=== PATIENT | female | born 1990 | race Caucasian/White ===

== ENCOUNTER 2016-11-28 20:38 | Emergency (ER) | payer BC ==
[2016-11-28 21:59] VITALS: BP 110/66
[2016-11-28] MEDS ORDERED: Cyclobenzaprine TAB* 10 MG PO ONE (23:03)
[2016-11-28] MEDS ORDERED: Naproxen TAB* 250 MG PO ONE (23:03)
--- NOTE | 2016-11-29 01:21 | ED ---
Back Pain - HPI Summary HPI Summary: Patient arrives to ED with CC of back pain which started last night. History of sciatic pain and lower back pain during . States onset was sudden, denies trauma. Denies bladder or bowel incontinence. Pain is in lower back bilaterally and is sharp. Pain radiates down the right side of the leg and is sharp like "lightning." Has tried Ibuprofen without relief. She states she lays on the couch most of the day. Awoke today with a 10/10 onset of pain. denies saddle anesthesia. denies tenderness over spine. - History of Current Complaint Chief Complaint: EDBackInjuryPain Stated Complaint: LOWER BACK PAIN Hx Obtained From: Patient Onset/Duration: Sudden Onset Onset/Duration: Started Days Ago Timing: Constant Back Pain Location: Is Discrete @ - bilateral hips at sacroiliac joints. Severity Initially: Moderate Severity Currently: Moderate Pain Intensity: 6 Pain Scale Used: 0-10 Numeric Character: Aching Aggravating Symptom(s): Movement, Bending Alleviating Symptom(s): Rest, Position - laying on side Associated Signs And Symptoms: Positive: Weakness - Risk Factors AAA Risk Factors: Negative TAD Risk Factors: Negative Cauda Equina Risk Factors: Negative Epidural Abscess Risk Factors: Negative - Allergies/Home Medications Allergies/Adverse Reactions: Allergies Allergy/AdvReac Type Severity Reaction Status Date / Time No Known Allergies Allergy Verified 11/28/16 20:42 PMH/Surg Hx/FS Hx/Imm Hx Previously Healthy: Yes Infectious Disease History: No Infectious Disease History: Denies: Traveled Outside the [place] in Last 30 Days - Social History Occupation: Employed Part-time Lives: With Family Alcohol Use: None Substance Use Type: Reports: None Smoking Status (MU): Never Smoked Tobacco Review of Systems Constitutional: Negative Cardiovascular: Negative Respiratory: Negative Gastrointestinal: Negative Genitourinary: Negative Positive: no symptoms reported, see HPI Positive: Arthralgia - bilateral sacroiliac pain, lower back pain Skin: Negative Positive: Other - no bruising noted Neurological: Negative Psychological: Normal All Other Systems Reviewed And Are Negative: Yes Physical Exam Triage Information Reviewed: Yes Vital Signs On Initial Exam: Initial Vitals Temp Pulse Resp BP Pulse Ox 98.0 F 84 18 115/84 99 11/28/16 20:42 11/28/16 20:42 11/28/16 20:42 11/28/16 20:42 11/28/16 20:42 Vital Signs Reviewed: Yes Appearance: Positive: Well-Appearing, No Pain Distress, Well-Nourished Skin: Positive: Warm Head/Face: Positive: Normal Head/Face Inspection Eyes: Positive: Normal, EOMI, ARJUN Neck: Positive: Supple, Nontender Respiratory/Lung Sounds: Positive: Clear to Auscultation Cardiovascular: Positive: Normal Musculoskeletal: Positive: Strength/ROM Intact, Pain @ - sacoiliac joints bilaterally Neurological: Positive: Normal, Sensory/Motor Intact, Speech Normal Psychiatric: Positive: Normal Diagnostics - Vital Signs Vital Signs Temp Pulse Resp BP Pulse Ox 11/28/16 21:58 98.6 F 62 18 110/66 98 11/28/16 20:42 98.0 F 84 18 115/84 99 - Laboratory Lab Statement: Any lab studies that have been ordered have been reviewed, and results considered in the medical decision making process. Back Pain Course/Dx - Course Course Of Treatment: acute onset after waking. no trauma. previous dx with sciatica and low back pain. radiates to lower extremity. no saddle anesthesia , no bladder or bowel dysfunction. position makes pain worse. patient given muscle relaxer and naproxen. Follow up with PCP. home exercises given for relief. - Diagnoses Differential Diagnosis/HQI/PQRI: Positive: Herniated Disc, Strain, Sprain Provider Diagnoses: Sciatic leg pain Images - Images Full Body (No Head): 1 - pain 08/13 Discharge - Discharge Plan Condition: Stable Disposition: HOME Prescriptions: Cyclobenzaprine TAB* [Flexeril TAB*] 10 mg PO BID #15 tab Naproxen TAB* [Naprosyn TAB*] 500 mg PO Q8H PRN #20 tab PRN Reason: Pain Patient Education Materials: Sciatica (ED), Lower Back Exercises (ED) Referrals: No Primary Care Phys,NOPCP [Primary Care Provider] - Additional Instructions: Heat to area 4-5 times daily for pain and circulation. Naproxen as needed for pain and inflammation. Flexeril as needed for muscle spasm and sciatica related pain. Tennis ball to area to massage - 4-5 times per day. Hot soaks in the bath will help alleviate pain. Come back to ED if symptoms fail to improve or worsen. Follow up with your PCP.
== END 2016-11-28 23:41 | disposition home or self-care (01) ==
LOC: ED 20:38
DX: M54.32 Sciatica, left side (principal); M54.31 Sciatica, right side
CPT/HCPCS: 99282; A9270-GY

== ENCOUNTER 2017-02-13 17:34 | Inpatient (IN) | payer SELFPAY ==
[2017-02-13 19:16] LABS: Hematocrit 49 % (35-47); Hemoglobin 16.5 g/dl (12.0-16.0); Mean Corpuscular HGB Conc 33 g/dl (31-36); Mean Corpuscular Hemoglobin 29 pg (27-31); Mean Corpuscular Volume 88 fL (80-97); Mean Platelet Volume 9 um3 (7.4-10.4); Red Blood Count 5.64 10^6/ul (4.0-5.4); Red Cell Distribution Width 14 % (10.5-15); White Blood Count 13.7 10^3/ul (3.5-10.8)
[2017-02-13 19:31] LABS: Acetaminophen < 15 mcg/mL; Alcohol < 10 mg/dL (<10); Salicylate < 2.50 mg/dL (<30)
[2017-02-13 19:33] LABS: ALT 8 U/L (7-52); AST 14 U/L (13-39); Albumin 4.6 g/dL (3.2-5.2); Alkaline Phosphatase 60 U/L (34-104); Anion Gap 8 mmol/L (2-11); BUN/Creatinine Ratio 12.2 (8-20); Blood Urea Nitrogen 10 mg/dL (6-24); CO2 Carbon Dioxide 23 mmol/L (22-32); Calcium 9.8 mg/dL (8.6-10.3); Chloride 108 mmol/L (101-111); EGFR African American 106.8 (>60); Globulin 3.4 g/dL (2-4); Glucose 87 mg/dL (70-100); Potassium 3.7 mmol/L (3.5-5.0); Sodium 139 mmol/L (133-145)
[2017-02-13 19:41] LABS: TSH (Thyroid Stimulating Horm) 1.51 mcIU/mL (0.34-5.60)
[2017-02-13 20:10] LABS: Urine Bacteria Absent (Absent); Urine Bilirubin Negative (Negative); Urine Glucose Negative (Negative); Urine Nitrite Negative (Negative)
[2017-02-13 21:39] LABS: Benzodiazepine Urine Screen None Detected (None Detect)
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
[2017-02-13 23:59] LABS: Manual Entry Verification LOR0008; UR Preg Internal Control QC Line Present
[2017-02-14] MEDS ORDERED: Nicotine GUM* 2 MG PO PRN (04:24)
[2017-02-14] MEDS ORDERED: Nicotine Inhaler* 10 MG AMP INH PRN (11:17)
[2017-02-14 11:26] VITALS: BP 122/68
[2017-02-14] MEDS ORDERED: Mouth Piece, Nicotine* 1 EACH CARTRIDGE INH ONE (12:00)
[2017-02-14] MEDS ORDERED: Nicotine PATCH 21 MG/24 HR* PATCH TRANSDERM SCH (12:00)
[2017-02-14] MEDS ORDERED: Nicotine Patch Removal NOTE PATCH OFF SCH (21:00)
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
== END 2017-02-14 17:15 | disposition home or self-care (01) | DRG 882 ==
LOC: ED 17:34 → BSU 02-14 07:45
PROVIDERS: ADMIT Psychiatry & Neurology Psychiatry; ATTEND Psychiatry & Neurology Psychiatry
DX: F43.25 Adjustment disorder with mixed disturbance of emotions and conduct (principal); F17.210 Nicotine dependence, cigarettes, uncomplicated; Z63.9 Problem related to primary support group, unspecified; Z88.8 Allergy status to other drugs, medicaments and biological substances; M54.30 Sciatica, unspecified side
CPT/HCPCS: 36415; 80053; 80307; 80320; 80329; 81003; 81015; 81025; 83605; 84443; 84702; 85025; 87086; 93005; 99406; A9270-GY; G0480

== ENCOUNTER 2018-07-25 12:02 | Emergency (ER) | payer OTHER ==
[2018-07-25 12:17] VITALS: BP 138/91
--- NOTE | 2018-07-25 12:23 | UC ---
Respiratory Complaint HPI - HPI Summary HPI Summary: 28-year-old female with history of asthma presents with 4 day history of nasal congestion, clear nasal discharge, right ear pain, shortness of breath, wheezing , and a nonproductive cough. Needing to use her albuterol inhaler every 4 hours however she ran out of her inhaler and currently does not have a primary care provider if she just recently moved to the area. Denies fever, chest pain , abdominal pain, nausea, or vomiting. Smokes one pack of cigarettes every 4 days. - History of Current Complaint Chief Complaint: UCGeneralIllness Stated Complaint: COUGH Time Seen by Provider: 07/25/18 12:10 Hx Obtained From: Patient Hx Last Menstrual Period: no period Onset/Duration: Gradual Onset Severity Initially: Mild Severity Currently: Mild Pain Intensity: 4 Alleviating Factors: Bronchodilator Associated Signs And Symptoms: Positive: Dyspnea, Wheezing, URI, Nasal Congestion. Negative: Fever, Chills, Pleuritic Chest Pain, Hemoptysis, Sinus Discomfort - Allergies/Home Medications Allergies/Adverse Reactions: Allergies Allergy/AdvReac Type Severity Reaction Status Date / Time No Known Allergies Allergy Verified 07/25/18 12:09 PMH/Surg Hx/FS Hx/Imm Hx Previously Healthy: Yes Respiratory History: Asthma - Surgical History Surgical History: None Surgery Procedure, Year, and Place: cholecystectomy 2011 - Family History Known Family History: Positive: Unknown - Pt denies knowing anything about her family. - Social History Occupation: Employed Full-time Lives: With Family Alcohol Use: None Substance Use Type: None Smoking Status (MU): Heavy Every Day Tobacco Smoker Amount Used/How Often: 1PP 4 days Household Exposure Type: Cigarettes - Immunization History Most Recent Influenza Vaccination: unknown Most Recent Pneumonia Vaccination: n/a Review of Systems Constitutional: Negative Skin: Negative Eyes: Negative ENT: Ear Ache, Nasal Discharge Respiratory: Shortness Of Breath, Cough, Other - wheezing Cardiovascular: Negative Gastrointestinal: Negative Genitourinary: Negative Is Patient Immunocompromised?: No All Other Systems Reviewed And Are Negative: Yes Physical Exam Triage Information Reviewed: Yes Appearance: Well-Appearing, No Pain Distress, Well-Nourished Vital Signs: Initial Vital Signs Temp 97.5 F 07/25/18 12:10 Pulse 82 07/25/18 12:10 Resp 20 07/25/18 12:10 BP 138/91 07/25/18 12:10 Pulse Ox 99 07/25/18 12:10 Vital Signs Reviewed: Yes Eyes: Positive: Conjunctiva Clear. Negative: Discharge ENT: Positive: Nasal congestion, Nasal drainage, TMs normal, Tonsillar swelling - 2+, Uvula midline. Negative: Pharyngeal erythema, Tonsillar exudate, Sinus tenderness Neck: Positive: Supple, Nontender, No Lymphadenopathy Respiratory: Positive: Chest non-tender, No respiratory distress, No accessory muscle use, Wheezing - diffuse mild wheezing bilaterally. Negative: Crackles, Rhonchi, Stridor Cardiovascular: Positive: RRR, No Murmur, Pulses Normal, Brisk Capillary Refill Neurological: Positive: Alert Skin Exam: Normal UC Diagnostic Evaluation - Laboratory O2 Sat by Pulse Oximetry: 99 Respiratory Course/Dx - Course Course Of Treatment: 28 year old female with history of asthma presents with 4 day history of URI symptoms, SOB, and wheezing. She is presently out of her albuterol inhaler and has not established with a PCP. She had diffuse mild wheezing bilaterally on exam without respiratory distress. VSS. Since she is a smoker and does not have a PCP for urgent follow up, will renew her inhaler, start on short course of prednisone, and cover with Z-tra. - Differential Dx/Diagnosis Provider Diagnoses: Acute bronchitis, asthma, elevated blood pressure reading Discharge - Sign-Out/Discharge Documenting (check all that apply): Patient Departure All imaging exams completed and their final reports reviewed: No Studies - Discharge Plan Condition: Stable Disposition: HOME Prescriptions: Albuterol HFA INHALER* [Ventolin HFA Inhaler*] 1 puff INH Q4H PRN #1 mdi PRN Reason: Sob/Wheezing Azithromyxin TRA (NF) [Z-Tra (Zithromax) 250 mg tabs #6] 2 tab PO .TODAY, THEN 1 DAILY #6 tab predniSONE [Deltasone 20 MG TAB] 40 mg PO DAILY #10 tablet Patient Education Materials: Asthma (ED), Acute Bronchitis (ED) Referrals: No Primary Care Phys,NOPCP [Primary Care Provider] - [facility] [Outside] Additional Instructions: Take azithromycin 2 tabs today then 1 tab a day for next 4 days. Start prednisone 40 mg daily for 5 days. Use your albuterol inhaler 2 puffs every 4-6 hours as needed for shortness of breath or wheezing. Your blood pressure in the clinic today was mildly elevated. It is recommended that you establish with a primary care provider to have this rechecked. I have provided you with the number for the [facility] to help you arrange for follow up if needed. Seek immediate medical attention if you develop persistent fever, chest pain, worsening shortness of breath, persistent wheezing despite using inhaler, or any worsening of symptoms. - Billing Disposition and Condition Condition: STABLE Disposition: Home
== END 2018-07-25 12:39 | disposition home or self-care (01) ==
LOC: UCEAST 12:02
DX: R03.0 Elevated blood-pressure reading, without diagnosis of hypertension (principal); F17.210 Nicotine dependence, cigarettes, uncomplicated; J45.909 Unspecified asthma, uncomplicated
CPT/HCPCS: 99212; G0463

== ENCOUNTER 2019-12-18 10:46 | Emergency (ER) | payer OTHER ==
[2019-12-18] MEDS ORDERED: Tetan/Diph/Pertus SYR(Tdap)* 0.5 ML SYR(BOOSTRIX) use SYR contains LATEX IM ONE (10:55)
--- NOTE | 2019-12-18 11:01 | ED ---
Burn - HPI Summary HPI Summary: Patient is a 29 y/o F presenting to the ED via EMS for a chief complaint of burn to the left forearm that occurred on 12/18/19. Patient states that she was boiling chicken stock when she spilled some chicken stock on her left forearm. She denies any additional trauma or ford. On vitals, patient does not have a fever. Any aggravating or alleviating factors are denied. PMHx is significant for asthma. PSHx is significant for cholecystectomy. She is unsure when she last had a tetanus vaccination. - History of Current Complaint Stated Complaint: FORD L ARM PER EMS Time Seen by Provider: 12/18/19 10:55 Hx Obtained From: Patient Hx Last Menstrual Period: no period Length of Exposure: Seconds Onset Severity: Moderate Current Severity: Moderate Pain Scale Used: 0-10 Numeric Location: LUE - Left forearm Character: Scald Aggravating: Nothing Alleviating: Nothing Associated Signs & Symptoms: Negative: Additional Trauma - Allergy/Home Medications Allergies/Adverse Reactions: Allergies Allergy/AdvReac Type Severity Reaction Status Date / Time No Known Allergies Allergy Verified 07/25/18 12:09 Home Medications: Home Medications NK [No Home Medications Reported] 12/18/19 [History Confirmed 12/18/19] PMH/Surg Hx/FS Hx/Imm Hx Previously Healthy: Yes Respiratory History: Reports: Hx Asthma Sensory History: Denies: Hx Contacts or Glasses, Hx Legally Blind, Hx Deafness, Hx Hearing Aid Opthamlomology History: Denies: Hx Contacts or Glasses, Hx Legally Blind EENT History: Denies: Hx Deafness Psychiatric History: Reports: Hx Eating Disorder - Anorexia, Eating daily for the past 8 months Denies: Hx of Violent Episodes Against Others - Surgical History Surgical History: Yes Surgery Procedure, Year, and Place: cholecystectomy 2012 Infectious Disease History: No Infectious Disease History: Denies: Traveled Outside the [place] in Last 30 Days - Family History Known Family History: Negative: Diabetes - Social History Occupation: Employed Full-time Lives: With Family Alcohol Use: None Hx Substance Use: No Substance Use Type: Reports: None Hx Tobacco Use: Yes Smoking Status (MU): Heavy Every Day Tobacco Smoker Amount Used/How Often: 1PP 4 days Review of Systems Negative: Fever Positive: Other - Positive burn to the left forearm All Other Systems Reviewed And Are Negative: Yes Physical Exam - Summary Physical Exam Summary: Appearance: The patient is well-nourished in no acute distress and in no acute pain. Skin: The skin is warm and dry, and skin color reflects adequate perfusion. HEENT: The head is normocephalic and atraumatic. The pupils are equal and reactive. The conjunctivae are clear and without drainage. Nares are patent and without drainage. Mouth reveals moist mucous membranes, and the throat is without erythema and exudate. The external ears are intact. The ear canals are patent and without drainage. The tympanic membranes are intact. Neck: The neck is supple with full range of motion and non-tender. There are no carotid bruits. There is no neck vein distension. Respiratory: Chest is non-tender. Lungs are clear to auscultation and breath sounds are symmetrical and equal. Cardiovascular: Heart is regular rate and rhythm. There is no murmur or rub auscultated. There is no peripheral edema and pulses are symmetrical and equal. Abdomen: The abdomen is soft and non-tender. There are normal bowel sounds heard in all four quadrants and there is no organomegaly palpated. Musculoskeletal: There is no back tenderness noted. Extremities are non-tender with full range of motion. There is good capillary refill. There is no peripheral edema or calf tenderness elicited. Superficial partial thickness ford to the posterior medial aspect of the proximal forearm, not circumferential. Neurological: Patient is alert and oriented to person, place and time. The patient has symmetrical motor strength in all four extremities. Cranial nerves are grossly intact. Deep tendon reflexes are symmetrical and equal in all four extremities. Psychiatric: The patient has an appropriate affect and does not exhibit any anxiety or depression. Triage Information Reviewed: Yes Vital Signs Reviewed: Yes Burn Calculation - [place] Formula for Fluid Resuscitation 24 -Hour Fluid Replacement: 0.0 Procedures - Sedation Patient Received Moderate/Deep Sedation with Procedure: No Burn Course/Dx - Course Course Of Treatment: She was found to have superficial partial-thickness ford that were non-circumferential on her left arm. These were cleaned and dressed and I recommended follow-up as needed. - Diagnoses Provider Diagnosis: Burn Discharge ED - Sign-Out/Discharge Documenting (check all that apply): Patient Departure - Discharge - Discharge Plan Condition: Stable Disposition: HOME Patient Education Materials: Superficial Burn (ED) Forms: *Work Release Referrals: [facility] [Outside] Additional Instructions: RETURN TO THE EMERGENCY DEPARTMENT FOR CHANGING OR WORSENING SYMPTOMS. Follow up with your primary care physician in 2-3 days. - Billing Disposition and Condition Condition: STABLE Disposition: Home - Attestation Statements Document Initiated by Daniela: Yes Documenting Scribe: Princess Stevenson Provider For Whom Daniela is Documenting (Include Credential): Francis Ochoa MD Scribe Attestation: Princess Galarza, scribed for Francis Ochoa MD on 12/18/19 at 1621. Scribe Documentation Reviewed: Yes Provider Attestation: The documentation as recorded by the Princess borjas accurately reflects the service I personally performed and the decisions made by me, Francis Ochoa MD Status of Scribe Document: Viewed
[2019-12-18] MEDS ORDERED: Neomycin/Polym/Bacit TOP OINT* 15 GM TOPICAL ONE (11:25)
[2019-12-18 11:54] VITALS: BP 130/86
== END 2019-12-18 11:53 | disposition home or self-care (01) ==
LOC: ED 10:46
DX: T22.012A Burn of unspecified degree of left forearm, initial encounter (principal); X12.XXXA Contact with other hot fluids, initial encounter; Y93.G1 Activity, food preparation and clean up; Y92.9 Unspecified place or not applicable; Z23 Encounter for immunization
CPT/HCPCS: 90471; 90715; 99282; A9270-GY